=== PATIENT | female | born 1930 | race Caucasian/White ===

== ENCOUNTER 2017-11-12 18:51 | Inpatient (IN) | payer MEDICARE, BC ==
[2017-11-12] MEDS: ONDANSETRON 4 MG INJ IV (19:50)
[2017-11-12] MEDS: LACTATED RINGER'S 1,000 ML IV (19:50)
[2017-11-12 20:19] LABS: ADD MAN DIFF? NO
[2017-11-12 20:23] LABS: BASOPHILS % 0.3 % (0.0-2.0); EOSINOPHILS % 0.3 % (0.0-7.0); HEMOGLOBIN 11.6 g/dl (12.0-16.0); LYMPHOCYTES # 1.8 10^3/ul (0.8-2.9); MEAN CORPUSCULAR HEMOGLOBIN 30.3 pg (29.0-33.0); MEAN CORPUSCULAR HGB CONC 31.4 g/dl (32.0-37.0); MEAN CORPUSCULAR VOLUME 96.6 fl (82.0-101.0); MEAN PLATELET VOLUME 10.6 fl (7.4-10.4); MONOCYTE # 0.6 10^3/ul (0.3-0.9); MONOCYTES % 8.8 % (0.0-11.0); NEUTROPHIL # 4.6 10^3/ul (1.6-7.5); PLATELET COUNT 146 10^3/UL (140-415); RED BLOOD COUNT 3.83 10^6/ul (4.20-5.40); RED CELL DISTRIBUTION WIDTH 15.6 % (11.5-14.5)
[2017-11-12 20:35] LABS: ADD UMIC YES; UR ASCORBIC ACID NEGATIVE (NEGATIVE); UR BACTERIA FEW /HPF (NONE SEEN); UR BILIRUBIN (Dip) NEGATIVE (NEGATIVE); UR BLOOD (Dip) NEGATIVE (NEGATIVE); UR CLARITY CLOUDY (CLEAR); UR COLOR AMBER (YELLOW); UR GLUCOSE (Dip) NEGATIVE (NEGATIVE); UR HYALINE CAST FEW /HPF (NONE SEEN); UR KETONES (Dip) NEGATIVE (NEGATIVE); UR LEUKOCYTE ESTERASE (Dip) NEGATIVE Leu/ul (NEGATIVE); UR MUCUS MODERATE /HPF (NONE SEEN); UR NITRITE (Dip) NEGATIVE (NEGATIVE); UR RBC 0 /HPF (0-5); UR SPECIFIC GRAVITY (Dip) 1.016 (1.003-1.030); UR SQUAMOUS EPITHELIAL CELL MANY /HPF (FEW); UR TOTAL PROTEIN (Dip) 2+ mg/dl (NEGATIVE); UR UROBILINOGEN (Dip) 1+ mg/dL (NEGATIVE); UR WBC 4 /HPF (0-5)
[2017-11-12 20:38] LABS: LACTIC ACID 2.1 mmol/L (0.5-2.0)
[2017-11-12 20:39] LABS: ALANINE AMINOTRANSFERASE 19 IU/L (13-69); ALBUMIN 3.5 g/dl (3.3-4.9); ALBUMIN/GLOBULIN RATIO 0.83; ALKALINE PHOSPHATASE 85 IU/L (42-121); ANION GAP 17 (8-16); ASPARTATE AMINO TRANSFERASE 31 IU/L (15-46); BILIRUBIN,INDIRECT 0.4 mg/dl (0-1.1); BILIRUBIN,TOTAL 0.4 mg/dl (0.2-1.3); BLOOD UREA NITROGEN 31 mg/dl (7-20); CALCIUM 9.6 mg/dl (8.4-10.2); CARBON DIOXIDE 28 mmol/L (21-31); CHLORIDE 97 mmol/L (97-110); CREATININE 2.25 mg/dl (0.44-1.00); GLUCOSE 233 mg/dl (70-220); LIPASE 50 U/L (23-300); POTASSIUM 5.1 mmol/L (3.5-5.1); SODIUM 137 mmol/L (135-144); TOTAL PROTEIN 7.7 g/dl (6.1-8.1)
[2017-11-12 20:50] LABS: TROPONIN-I 0.022 ng/ml (0.000-0.120)
[2017-11-12 21:58] LABS: B-TYPE NATRIURETIC PEPTIDE 11000 PG/ML (0-450)
[2017-11-12 22:10] LABS: AADO2 Arterial 159.2 mmHg (7.0-24.0); Allen Test ACCEPTAB; Arterial Base Excess 3.5 mmol/L (-3.0-3); Arterial Blood Gas Oxygen Sat 91.2 mmHG (95.0-100.0); Arterial COHb 0.1 % (0.0-3.0); Arterial Fraction of Oxyhgb 90.8 % (93.0-99.0); Arterial HCO3 28.9 mmol/L (22.0-26.0); Arterial MetHb 0.3 % (0.0-1.5); Arterial Total Hemglobin 11.9 g/dl (12.0-18.0); Arterial pCO2 47.8 mmhg (35-45); MODE NASAL CANNULA; Site Right Radial
[2017-11-13] MEDS: FUROSEMIDE 20 MG INJ IV (00:38)
[2017-11-13] MEDS ORDERED: ACETAMINOPHEN 325 MG TAB PO (07:00)
[2017-11-13] MEDS ORDERED: ALBUTEROL/IPRATROPIUM (NEB) 3 ML AMP HHN (07:00)
[2017-11-13] MEDS ORDERED: ALPRAZOLAM 0.25 MG TAB PO (07:00)
[2017-11-13] MEDS ORDERED: NACL 0.9% 3 ML SYG IV (07:00)
[2017-11-13] MEDS: PANTOPRAZOLE (EC) 40 MG TAB PO (07:48)
[2017-11-13] MEDS: BUMETANIDE 1 MG TAB PO ×2 (07:48→19:06)
[2017-11-13] MEDS: LEVOTHYROXINE 50 MCG TAB PO (07:48)
[2017-11-13 08:21] LABS: ADD MAN DIFF? NO
[2017-11-13 08:24] LABS: BASOPHILS % 0.2 % (0.0-2.0); EOSINOPHILS % 0.3 % (0.0-7.0); HEMATOCRIT 33.7 % (37.0-47.0); HEMOGLOBIN 10.6 g/dl (12.0-16.0); LYMPHOCYTES # 1.8 10^3/ul (0.8-2.9); LYMPHOCYTES % 30.9 % (15.0-51.0); MEAN CORPUSCULAR HGB CONC 31.5 g/dl (32.0-37.0); MEAN CORPUSCULAR VOLUME 95.5 fl (82.0-101.0); MEAN PLATELET VOLUME 10.8 fl (7.4-10.4); MONOCYTE # 0.7 10^3/ul (0.3-0.9); MONOCYTES % 11.6 % (0.0-11.0); NEUTROPHIL # 3.4 10^3/ul (1.6-7.5); NEUTROPHILS % 56.7 % (39.0-77.0); PLATELET COUNT 118 10^3/UL (140-415); RED BLOOD COUNT 3.53 10^6/ul (4.20-5.40); RED CELL DISTRIBUTION WIDTH 15.9 % (11.5-14.5)
[2017-11-13 08:42] LABS: CREATINE KINASE < 20 IU/L (23-200)
[2017-11-13 08:44] LABS: ALANINE AMINOTRANSFERASE 15 IU/L (13-69); ALBUMIN 3.2 g/dl (3.3-4.9); ALBUMIN/GLOBULIN RATIO 0.82; ALKALINE PHOSPHATASE 71 IU/L (42-121); ANION GAP 15 (8-16); ASPARTATE AMINO TRANSFERASE 20 IU/L (15-46); BILIRUBIN,INDIRECT 0.4 mg/dl (0-1.1); BILIRUBIN,TOTAL 0.4 mg/dl (0.2-1.3); BLOOD UREA NITROGEN 31 mg/dl (7-20); CALCIUM 9.3 mg/dl (8.4-10.2); CARBON DIOXIDE 29 mmol/L (21-31); CHLORIDE 99 mmol/L (97-110); CHOL/HDL RATIO 3.3 RATIO; CHOLESTEROL 180 mg/dl (100-200); CREATININE 2.31 mg/dl (0.44-1.00); GLUCOSE 133 mg/dl (70-220); HDL CHOLESTEROL 54 mg/dl (33-92); LDL CHOLESTEROL,CALCULATED 94 mg/dl; POTASSIUM 4.5 mmol/L (3.5-5.1); SODIUM 138 mmol/L (135-144); TOTAL PROTEIN 7.1 g/dl (6.1-8.1); TRIGLYCERIDES 162 mg/dl (0-149)
[2017-11-13 08:55] LABS: CK-MB 0.53 ng/ml (0.0-2.4); TROPONIN-I 0.057 ng/ml (0.000-0.120)
[2017-11-13] MEDS ORDERED: BUMETANIDE 1 MG PO (09:00)
[2017-11-13] MEDS: LOSARTAN 50 MG TAB PO ×2 (09:00→20:25)
[2017-11-13] MEDS: AMIODARONE 200 MG TAB PO (09:00)
[2017-11-13] MEDS ORDERED: NON-FORMULARY/PATIENT OWN MED (Carvedilol* 25 MG) PO (09:00)
[2017-11-13] MEDS: DOCUSATE SODIUM 100 MG CAP PO ×2 (09:11→20:25)
[2017-11-13] MEDS: APIXABAN 5 MG TABLET PO (09:11)
[2017-11-13 13:36] LABS: CREATINE KINASE < 20 IU/L (23-200)
[2017-11-13 13:49] LABS: CK-MB 0.48 ng/ml (0.0-2.4); TROPONIN-I 0.054 ng/ml (0.000-0.120)
[2017-11-13] MEDS: MIRTAZAPINE 15 MG TAB PO (20:26)
[2017-11-13] MEDS: MONTELUKAST 10 MG TAB PO (20:27)
[2017-11-14] MEDS: BUMETANIDE 1 MG TAB PO ×2 (06:14→17:42)
[2017-11-14] MEDS: LEVOTHYROXINE 75 MCG TAB PO (06:14)
[2017-11-14] MEDS: PANTOPRAZOLE (EC) 40 MG TAB PO (06:14)
[2017-11-14 08:17] LABS: ADD MAN DIFF? NO; BASOPHILS % 0.3 % (0.0-2.0); EOSINOPHILS % 0.5 % (0.0-7.0); HEMATOCRIT 31.8 % (37.0-47.0); HEMOGLOBIN 9.9 g/dl (12.0-16.0); LYMPHOCYTES # 1.9 10^3/ul (0.8-2.9); LYMPHOCYTES % 30.2 % (15.0-51.0); MEAN CORPUSCULAR HEMOGLOBIN 30.1 pg (29.0-33.0); MEAN CORPUSCULAR HGB CONC 31.1 g/dl (32.0-37.0); MEAN CORPUSCULAR VOLUME 96.7 fl (82.0-101.0); MONOCYTE # 0.6 10^3/ul (0.3-0.9); MONOCYTES % 9.7 % (0.0-11.0); NEUTROPHIL # 3.6 10^3/ul (1.6-7.5); NEUTROPHILS % 58.8 % (39.0-77.0); PLATELET COUNT 118 10^3/UL (140-415); RED BLOOD COUNT 3.29 10^6/ul (4.20-5.40); RED CELL DISTRIBUTION WIDTH 16.1 % (11.5-14.5)
[2017-11-14 08:17] LABS: WHITE BLOOD COUNT 6.2 10^3/ul (4.8-10.8)
[2017-11-14] MEDS: DOCUSATE SODIUM 100 MG CAP PO ×2 (08:32→20:21)
[2017-11-14] MEDS: APIXABAN 5 MG TABLET PO (08:32)
[2017-11-14] MEDS: AMIODARONE 200 MG TAB PO (08:33)
[2017-11-14] MEDS: LOSARTAN 50 MG TAB PO (08:34)
[2017-11-14 08:39] LABS: ANION GAP 16 (8-16); BLOOD UREA NITROGEN 39 mg/dl (7-20); CARBON DIOXIDE 26 mmol/L (21-31); CHLORIDE 99 mmol/L (97-110); CREATININE 2.67 mg/dl (0.44-1.00); GLUCOSE 132 mg/dl (70-220); PHOSPHORUS 5.6 mg/dl (2.5-4.9); POTASSIUM 4.6 mmol/L (3.5-5.1); SODIUM 136 mmol/L (135-144)
[2017-11-14] MEDS: METHYLPREDNISOLONE 125 MG INJ IV ×2 (17:42→22:26)
[2017-11-14] MEDS: MIRTAZAPINE 15 MG TAB PO (20:21)
[2017-11-14] MEDS: MONTELUKAST 10 MG TAB PO (20:21)
[2017-11-15] MEDS: BUMETANIDE 1 MG TAB PO (05:45)
[2017-11-15] MEDS: METHYLPREDNISOLONE 125 MG INJ IV ×3 (05:45→21:46)
[2017-11-15] MEDS: LEVOTHYROXINE 75 MCG TAB PO (05:46)
[2017-11-15] MEDS: PANTOPRAZOLE (EC) 40 MG TAB PO (05:49)
[2017-11-15] MEDS: AMIODARONE 200 MG TAB PO (08:04)
[2017-11-15] MEDS: DOCUSATE SODIUM 100 MG CAP PO ×2 (08:04→20:34)
[2017-11-15] MEDS: APIXABAN 5 MG TABLET PO (08:04)
[2017-11-15 09:03] LABS: ADD MAN DIFF? NO
[2017-11-15 09:13] LABS: WHITE BLOOD COUNT 5.7 10^3/ul (4.8-10.8)
[2017-11-15 09:13] LABS: BASOPHILS % 0.2 % (0.0-2.0); HEMATOCRIT 33.4 % (37.0-47.0); HEMOGLOBIN 10.9 g/dl (12.0-16.0); LYMPHOCYTES # 0.8 10^3/ul (0.8-2.9); LYMPHOCYTES % 13.9 % (15.0-51.0); MEAN CORPUSCULAR HGB CONC 32.6 g/dl (32.0-37.0); MEAN CORPUSCULAR VOLUME 94.9 fl (82.0-101.0); MEAN PLATELET VOLUME 11.6 fl (7.4-10.4); MONOCYTE # 0.2 10^3/ul (0.3-0.9); MONOCYTES % 3.2 % (0.0-11.0); NEUTROPHIL # 4.6 10^3/ul (1.6-7.5); NEUTROPHILS % 80.9 % (39.0-77.0); PLATELET COUNT 146 10^3/UL (140-415); RED BLOOD COUNT 3.52 10^6/ul (4.20-5.40); RED CELL DISTRIBUTION WIDTH 15.4 % (11.5-14.5)
[2017-11-15 09:43] LABS: ANION GAP 16 (8-16); BLOOD UREA NITROGEN 42 mg/dl (7-20); CALCIUM 9.1 mg/dl (8.4-10.2); CARBON DIOXIDE 29 mmol/L (21-31); CHLORIDE 96 mmol/L (97-110); CREATININE 2.47 mg/dl (0.44-1.00); GLUCOSE 315 mg/dl (70-220); POTASSIUM 4.3 mmol/L (3.5-5.1); SODIUM 137 mmol/L (135-144)
[2017-11-15] MEDS: BUMETANIDE 1 MG INJ IV (17:38)
[2017-11-15] MEDS: MONTELUKAST 10 MG TAB PO (20:33)
[2017-11-15] MEDS: MIRTAZAPINE 15 MG TAB PO (20:35)
[2017-11-16] MEDS: PANTOPRAZOLE (EC) 40 MG TAB PO (06:38)
[2017-11-16] MEDS: BUMETANIDE 1 MG INJ IV ×2 (06:38→18:00)
[2017-11-16] MEDS: LEVOTHYROXINE 75 MCG TAB PO (06:38)
[2017-11-16] MEDS: METHYLPREDNISOLONE 125 MG INJ IV ×3 (06:38→20:28)
[2017-11-16] MEDS: APIXABAN 5 MG TABLET PO (08:14)
[2017-11-16] MEDS: AMIODARONE 200 MG TAB PO (08:14)
[2017-11-16] MEDS: DOCUSATE SODIUM 100 MG CAP PO ×2 (08:14→20:26)
[2017-11-16] MEDS: MIRTAZAPINE 15 MG TAB PO (20:26)
[2017-11-16] MEDS: MONTELUKAST 10 MG TAB PO (20:26)
== END 2017-11-16 21:05 | disposition home health service (06) | DRG 291 ==
LOC: E/R 18:51 → TEL 23:34
DX: I13.0 Hypertensive heart and chronic kidney disease with heart failure and stage 1 through stage 4 chronic kidney disease, or unspecified chronic kidney disease (principal); I50.31 Acute diastolic (congestive) heart failure; N17.9 Acute kidney failure, unspecified; J44.1 Chronic obstructive pulmonary disease with (acute) exacerbation; N18.9 Chronic kidney disease, unspecified; Z66 Do not resuscitate; R06.03 Acute respiratory distress; I48.91 Unspecified atrial fibrillation; E03.9 Hypothyroidism, unspecified
CPT/HCPCS: 36600; 71045; 80048; 80053; 80061; 81001; 82550; 82553; 82803; 83036; 83605; 83690; 83735; 83880; 84100; 84443; 84484; 85025; 93005; 93306; 96361; 96374; 99285-25